=== PATIENT | female | born 1980 | race Caucasian/White ===

== ENCOUNTER → 2021-03-23 | Outpatient (CLI) | payer OTHER ==
[~2021-03-23] MED LIST: CLARITIN10 MG PO; DOCUSATE SODIU100 MG PO; HYDROCODON-ACE1 EAC4 PO; IBUPROFEN600 MG PO; PRENATAL VITAM1 EAC5 PO; PRILOSEC OTC20 MG PO; ZOLOFT100 MG PO
[2021-03-23 16:33] LABS: HEMOGLOBIN 12.2 gm/dl (12.3-15.3); RED BLOOD COUNT 4.21 M/UL (4.00-5.10); WHITE BLOOD COUNT 8.6 K/UL (4.5-11.0)
[2021-03-23 16:35] LABS: BUN/CREATININE RATIO 9 (0-10)
== END ==
LOC: GENOP 14:23
PROVIDERS: Obstetrics & Gynecology
DX: Z01.812 Encounter for preprocedural laboratory examination (principal)
CPT/HCPCS: 36415; 80053; 81001; 85025

== ENCOUNTER 2021-03-24 06:43 | Inpatient (IN) | payer BC ==
[~2021-03-24] VITALS: Ht 165.1 cm; Wt 113.4 kg
[2021-03-24] MEDS ORDERED: ZOLOFT100 MG PO (08:44)
[2021-03-24] MEDS ORDERED: CLARITIN10 MG PO (08:45)
[2021-03-24] MEDS ORDERED: PRILOSEC OTC20 MG PO (08:45)
[2021-03-24] MEDS ORDERED: PRENATAL VITAM1 EAC5 PO (08:45)
[2021-03-24] MEDS ORDERED: IBUPROFEN600 MG PO (09:27)
[2021-03-24] MEDS ORDERED: DOCUSATE SODIU100 MG PO (09:27)
[2021-03-24] MEDS ORDERED: HYDROCODON-ACE1 EAC4 PO (09:27)
[2021-03-25 04:33] LABS: HEMOGLOBIN 10.3 gm/dl (12.3-15.3)
== END 2021-03-25 16:58 | disposition home or self-care (01) | DRG 788 ==
LOC: OB 06:43
PROVIDERS: Obstetrics & Gynecology; ADMIT Obstetrics & Gynecology
PROC: 4A1HXCZ Monitoring of Products of Conception, Cardiac Rate, External Approach (ICD-10-PCS; 2021-03-24)
PROC: 10D00Z1 Extraction of Products of Conception, Low, Open Approach (ICD-10-PCS; principal; 2021-03-24 07:30)
DX: O24.420 Gestational diabetes mellitus in childbirth, diet controlled (principal); O99.344 Other mental disorders complicating childbirth; F32.9 Major depressive disorder, single episode, unspecified; Z20.822 Contact with and (suspected) exposure to COVID-19; O99.824 Streptococcus B carrier state complicating childbirth; O69.81X0 Labor and delivery complicated by cord around neck, without compression, not applicable or unspecified; O34.211 Maternal care for low transverse scar from previous cesarean delivery; Z3A.38 38 weeks gestation of pregnancy; Z37.0 Single live birth
CPT/HCPCS: 36415; 80053; 81001; 82800; 82962; 85014; 85018; 85025; C9113; J0690; J1885; J2274; J2405; J2590; J3010; J7120